=== PATIENT | female | born 1940 | race Caucasian/White ===

== ENCOUNTER 2019-08-24 04:29 | Day surgery (SDC) | payer OTHER ==
[~2019-08-24 04:29] MED LIST: ASPIR 8181 MG; AVAPRO300 MG PO; COZAAR50 MG PO; DOXAZOSIN MESYLA2 MG PO; HYDRALAZINE HCL50 MG PO; OXYBUTYNIN CHLOR5 MG PO; PANADOL PO; PEPCID PO; PROTONIX40 MG PO
[2019-08-24] MEDS ORDERED: MACROBID 100 M100 MG PO (11:59)
[2019-08-24] MEDS ORDERED: ULTRACET PO (11:59)
== END 2019-08-24 15:05 | disposition home or self-care (01) ==
LOC: CIR.AMB 04:29
DX: N81.3 Complete uterovaginal prolapse (principal)